=== PATIENT | male | born 1975 | race Caucasian/White ===

== ENCOUNTER 2018-05-14 13:48 | Inpatient (IN) | payer OTHER ==
[2018-05-14] VITALS (238 sets, daily range): BP systolic 107; BP diastolic 71; PULSE 86; TEMP 98; O2SAT 63–100
[~2018-05-14] VITALS: Ht 182.9 cm; Wt 97.2 kg
[~2018-05-14 13:48] MED LIST: ALBUTEROL0.83 MG/ML IH; NEXIUM 40MG40 MG PO; VENTOLIN0.09 MG IH
[2018-05-14] MEDS ORDERED: ALBUTEROL1.25 MG/3 IH (14:16)
[2018-05-14 14:23] LABS: HEMATOCRIT 42.2 % (42.0-52.0); HEMOGLOBIN 14.8 g/dl (13.5-18.0); MEAN CELL VOLUME 90 fl (80.0-100.0); MEAN CORPUSCULAR HEMOGLOBIN 31 pg (27.0-31.0); MEAN CORPUSCULAR HGB CONC 35 g/dl (33.0-37.0); MEAN PLATELET VOLUME 10.2 fl (7.4-10.4); PLATELET COUNT 205 K/mm3 (130-400); RED BLOOD COUNT 4.71 M/mm3 (4.20-5.60); REDCELL DISTRIBUTION WIDTH-CV 12.9 % (11.5-14.5)
[2018-05-14 14:36] LABS: ALBUMIN 3.9 gm/dL (3.5-5.0); BILIRUBIN,TOTAL 0.8 mg/dL (0.0-1.0); CALCIUM 8.3 mg/dL (8.4-10.2); CREATININE, serum 2.61 mg/dL (0.66-1.25); POTASSIUM 3.2 mmol/L (3.4-5.0); TOTAL PROTEIN 7.4 gm/dL (6.4-8.2)
[2018-05-14 14:46] LABS: ERYTHROCYTE SEDIMENTATION RATE 7 mm/hr (0-15)
[2018-05-14 14:49] LABS: C-REACTIVE PROTEIN 21.2 mg/dL (0.0-0.9)
[2018-05-14 14:57] LABS: BAND 22 % (0-10); LYMPHOCYTE 1 % (20.0-51.0); METAMYELOCYTE 2 % (0-0); NEUTROPHILS 72 % (42.0-75.2); PLATELET ESTIMATE NORMAL (NORMAL)
[2018-05-14 17:00] LABS: COLLECTION METHOD CLEAN CATCH
[2018-05-14 17:13] LABS: GRANULAR CAST >12 /lpf; MUCOUS Present /lpf; PH 5 (5-8); URINE APPEARANCE Cloudy; URINE BACTERIA Rare /hpf; URINE BILIRUBIN Negative (NEGATIVE); URINE BLOOD 2+ (NEGATIVE); URINE COLOR Amber; URINE GLUCOSE Negative (NEGATIVE); URINE KETONE Negative (NEGATIVE); URINE LEUKOCYTE ESTERASE 3+ (NEGATIVE); URINE NITRATE Negative (NEGATIVE); URINE PROTEIN(semi-quant) 2+ (NEGATIVE); URINE UROBILINOGEN Negative (NEGATIVE)
[2018-05-14 18:28] LABS: CALCIUM 6.7 mg/dL (8.4-10.2); CREATININE, serum 2.25 mg/dL (0.66-1.25); POTASSIUM 3.3 mmol/L (3.4-5.0)
[2018-05-14 18:46] LABS: INR 1.2 (0.8-3.0); PROTHROMBIN TIME 13.7 SECONDS (9.7-12.8)
[2018-05-14 18:49] LABS: SALICYLATE < 1.0 mg/dL
[2018-05-14 18:59] LABS: TROPONIN-I 0.028 ng/mL (0.000-0.034)
[2018-05-14] MEDS ORDERED: 00186-0370-20 IH (20:04)
[2018-05-14] MEDS ORDERED: NEXIUM 20MG20 MG PO (20:04)
[2018-05-14 20:11] LABS: ARTERIAL BLD GAS O2 SATURATION 96.8 % (92-100); ARTERIAL BLD GAS TCO2 CT 15.4; ARTERIAL BLOOD GAS BASE EXCESS -8.5 (-2-2); ARTERIAL BLOOD GAS HCO3 14.6 meq/L (22-26); ARTERIAL BLOOD GAS PCO2 24.9 mmHg (35-45); ARTERIAL BLOOD GAS PO2 97.3 mmHg (80-100); ARTERIAL BLOOD GAS pH 7.39 (7.35-7.45)
[2018-05-14 23:50] LABS: CALCIUM 6.9 mg/dL (8.4-10.2); CREATININE, serum 1.96 mg/dL (0.66-1.25); POTASSIUM 3.3 mmol/L (3.4-5.0)
[2018-05-15] VITALS (1394 sets, daily range): BP systolic 92–132; BP diastolic 63–70; PULSE 88–122; TEMP 97.6–100.1; O2SAT 31–100
[2018-05-15 04:19] LABS: ARTERIAL BLD GAS O2 SATURATION 95.5 % (92-100); ARTERIAL BLD GAS TCO2 CT 17.2; ARTERIAL BLOOD GAS BASE EXCESS -5.5 (-2-2); ARTERIAL BLOOD GAS HCO3 16.5 meq/L (22-26); ARTERIAL BLOOD GAS PO2 73.4 mmHg (80-100); ARTERIAL BLOOD GAS pH 7.46 (7.35-7.45)
[2018-05-15 04:20] LABS: ARTERIAL BLOOD GAS PCO2 23.7 mmHg (35-45)
[2018-05-15 05:44] LABS: MEAN CELL VOLUME 92 fl (80.0-100.0); MEAN CORPUSCULAR HGB CONC 35 g/dl (33.0-37.0); MEAN PLATELET VOLUME 10.7 fl (7.4-10.4); PLATELET COUNT 180 K/mm3 (130-400); RED BLOOD COUNT 3.87 M/mm3 (4.20-5.60); REDCELL DISTRIBUTION WIDTH-CV 13.1 % (11.5-14.5)
[2018-05-15 05:45] LABS: INR 1.2 (0.8-3.0); PROTHROMBIN TIME 13.9 SECONDS (9.7-12.8)
[2018-05-15 05:49] LABS: HEMATOCRIT 35.4 % (42.0-52.0); HEMOGLOBIN 12.3 g/dl (13.5-18.0); MEAN CORPUSCULAR HEMOGLOBIN 32 pg (27.0-31.0)
[2018-05-15 05:56] LABS: ALBUMIN 2.8 gm/dL (3.5-5.0); BILIRUBIN,TOTAL 0.6 mg/dL (0.0-1.0); CREATININE, serum 1.63 mg/dL (0.66-1.25); POTASSIUM 3.2 mmol/L (3.4-5.0); TOTAL PROTEIN 5.7 gm/dL (6.4-8.2)
[2018-05-15 06:04] LABS: BAND 35 % (0-10); EOSINOPHIL 4 % (0-4); LYMPHOCYTE 1 % (20.0-51.0); NEUTROPHILS 58 % (42.0-75.2); PLATELET ESTIMATE NORMAL (NORMAL)
[2018-05-16] VITALS (1428 sets, daily range): BP systolic 106–139; BP diastolic 62–90; PULSE 100–116; TEMP 96.6–102.8; O2SAT 75–100
[2018-05-16 05:25] LABS: MEAN CELL VOLUME 92 fl (80.0-100.0); MEAN CORPUSCULAR HGB CONC 35 g/dl (33.0-37.0); MEAN PLATELET VOLUME 10.6 fl (7.4-10.4); PLATELET COUNT 158 K/mm3 (130-400); REDCELL DISTRIBUTION WIDTH-CV 13.3 % (11.5-14.5)
[2018-05-16 05:37] LABS: ALBUMIN 2.5 gm/dL (3.5-5.0); BILIRUBIN,TOTAL 0.7 mg/dL (0.0-1.0); CALCIUM 7.6 mg/dL (8.4-10.2); CREATININE, serum 1.02 mg/dL (0.66-1.25); MAGNESIUM 1.4 mg/dL (1.6-2.3); POTASSIUM 3.2 mmol/L (3.4-5.0); TOTAL PROTEIN 5.3 gm/dL (6.4-8.2)
[2018-05-16 05:46] LABS: HEMATOCRIT 29.5 % (42.0-52.0); HEMOGLOBIN 10.3 g/dl (13.5-18.0); MEAN CORPUSCULAR HEMOGLOBIN 32 pg (27.0-31.0)
[2018-05-16 05:54] LABS: INR 1.2 (0.8-3.0); PROTHROMBIN TIME 13.3 SECONDS (9.7-12.8)
[2018-05-16 06:17] LABS: BAND 35 % (0-10); EOSINOPHIL 1 % (0-4); LYMPHOCYTE 4 % (20.0-51.0); NEUTROPHILS 58 % (42.0-75.2)
[2018-05-16 06:18] LABS: PLATELET ESTIMATE NORMAL (NORMAL)
[2018-05-16 13:08] LABS: GLUCOSE,SYNOVIAL FLUID 124 mg/dL; SYNOVIAL FL. MONONUCLEAR 6.9 % (0-75); SYNOVIAL FLUID RBC 1000 /mm3 (0-0); SYNOVIAL FLUID WBC 21873 /mm3 (200-600); TOTAL PROTEIN,SYNOVIAL FLUID < 2.0 gm/dL
[2018-05-16 13:11] LABS: SYNOVIAL FLUID APPEARANCE CLOUDY; SYNOVIAL FLUID COLOR YELLOW
[2018-05-17] VITALS (1319 sets, daily range): BP systolic 108–133; BP diastolic 60–85; PULSE 90–101; TEMP 97.4–99.9; O2SAT 65–100
[2018-05-17 05:41] LABS: BASO # 0.1 (0.0-0.2); BASO % 0.5 % (0.0-2.0); EOS # 0.3 (0.0-0.7); EOS % 1.6 % (0-4.0); GRAN # 17.2 (1.4-6.5); HEMOGLOBIN 10.8 g/dl (13.5-18.0); LYMPH # 0.8 (1.2-3.4); LYMPH % 4.1 % (20.0-51.0); MEAN CELL VOLUME 90 fl (80.0-100.0); MEAN CORPUSCULAR HEMOGLOBIN 32 pg (27.0-31.0); MEAN CORPUSCULAR HGB CONC 36 g/dl (33.0-37.0); MONO % 5.3 % (1.7-9.3); PLATELET COUNT 175 K/mm3 (130-400); RED BLOOD COUNT 3.36 M/mm3 (4.20-5.60); REDCELL DISTRIBUTION WIDTH-CV 13.7 % (11.5-14.5)
[2018-05-17 05:44] LABS: PROTHROMBIN TIME 11.8 SECONDS (9.7-12.8)
[2018-05-17 05:45] LABS: HEMATOCRIT 30.3 % (42.0-52.0)
[2018-05-17 05:59] LABS: ALBUMIN 2.6 gm/dL (3.5-5.0); BILIRUBIN,TOTAL 1.1 mg/dL (0.0-1.0); CALCIUM 8.4 mg/dL (8.4-10.2); CREATININE, serum 0.82 mg/dL (0.66-1.25); POTASSIUM 3.6 mmol/L (3.4-5.0); TOTAL PROTEIN 5.7 gm/dL (6.4-8.2)
[2018-05-18] VITALS (715 sets, daily range): BP systolic 102–140; BP diastolic 71–94; PULSE 86–106; TEMP 97.8–98.7; O2SAT 53–100
[2018-05-19] VITALS (8 sets, daily range): BP systolic 124–149; BP diastolic 81–95; PULSE 75–110; TEMP 98.3–99.9
[2018-05-20 03:50] VITALS: BP 138/88; PULSE 90; TEMP 98.4
[2018-05-20 07:09] VITALS: BP 141/96; PULSE 76; TEMP 98.7
[2018-05-20 11:29] VITALS: BP 129/95; PULSE 88; TEMP 97.6
[2018-05-20 17:21] VITALS: BP 136/95; PULSE 93; TEMP 98.5
[2018-05-20 18:59] VITALS: BP 146/90; PULSE 92; TEMP 98.3
[2018-05-20 23:20] VITALS: BP 146/87; PULSE 89; TEMP 98.4
[2018-05-21 02:58] VITALS: BP 146/92; PULSE 95; TEMP 98.3
[2018-05-21 08:23] VITALS: BP 127/86; PULSE 84; TEMP 98.7
[2018-05-21 12:52] LABS: COLLECTION METHOD CLEAN CATCH
[2018-05-21 13:01] LABS: PH 5 (5-8); SQUAMOUS EPITHELIAL None Seen /hpf; URINE APPEARANCE Clear; URINE BACTERIA None Seen /hpf; URINE BILIRUBIN Negative (NEGATIVE); URINE BLOOD Negative (NEGATIVE); URINE COLOR Straw; URINE GLUCOSE Negative (NEGATIVE); URINE KETONE Negative (NEGATIVE); URINE LEUKOCYTE ESTERASE Negative (NEGATIVE); URINE NITRATE Negative (NEGATIVE); URINE PROTEIN(semi-quant) Negative (NEGATIVE); URINE RBC 0-2 /hpf; URINE UROBILINOGEN Negative (NEGATIVE); URINE WBC 0-2 /hpf
[2018-05-21 13:11] LABS: URINE PROTEIN:CREAT RATIO 0.87 (0.00-0.14)
[2018-05-21 13:36] LABS: CREATININE, serum 2.61 mg/dL (0.66-1.25); FRACTIONAL EXCRETION OF NA+ 4.9 %
[2018-05-21 13:37] VITALS: BP 136/95; PULSE 99; TEMP 98.4
[2018-05-21 17:33] VITALS: BP 136/92; PULSE 77; TEMP 98.4
[2018-05-21 20:14] VITALS: BP 133/87; PULSE 94; TEMP 99.3
[2018-05-21 23:56] VITALS: BP 143/95; PULSE 88; TEMP 99.4
[2018-05-22 03:49] VITALS: BP 137/88; PULSE 88; TEMP 98.4
[2018-05-22 08:00] VITALS: BP 134/93; PULSE 73; TEMP 97.7
[2018-05-22 11:53] VITALS: BP 134/88; PULSE 84; TEMP 98.2
[2018-05-22 16:47] VITALS: BP 137/91; PULSE 79; TEMP 98.3
[2018-05-22 19:13] VITALS: BP 140/86; PULSE 86; TEMP 97.9
[2018-05-22 23:02] VITALS: BP 141/92; PULSE 78; TEMP 99
[2018-05-23 03:59] VITALS: BP 132/83; PULSE 77; TEMP 98
[2018-05-23 07:34] VITALS: BP 137/88; PULSE 79; TEMP 98.8
[2018-05-23] MEDS ORDERED: CEPHALEXIN500 M1 PO (10:12)
[2018-05-23] MEDS ORDERED: MONODOX100 PO (10:12)
[2018-05-23] MEDS ORDERED: TYLENOL 325MG325 MG PO (10:13)
[2018-05-23] MEDS ORDERED: IMODIUM 2MG CAPS2 MG PO (10:13)
[2018-05-23] MEDS ORDERED: NORCO 325 MG-101 TAB PO (10:14)
[2018-05-23 11:01] VITALS: BP 139/74; PULSE 93; TEMP 97.8
[2018-05-23 17:13] LABS: CK total - for Isoenzymes 20 U/L (39 - 308)
== END 2018-05-23 13:00 | disposition home or self-care (01) | DRG 872 ==
LOC: COL.ER 13:48 → ICU 17:30 → MEDICAL 17:30
PROVIDERS: Emergency Medicine; Internal Medicine; Internal Medicine Nephrology; Nurse Practitioner; Physician Assistant
DX: A41.9 Sepsis, unspecified organism (principal); L03.116 Cellulitis of left lower limb; N17.9 Acute kidney failure, unspecified; R53.81 Other malaise; E87.6 Hypokalemia; E83.42 Hypomagnesemia; J45.909 Unspecified asthma, uncomplicated; K21.9 Gastro-esophageal reflux disease without esophagitis
CPT/HCPCS: 99223-AI; 99232-AI; 99233-AI; 99239; A9284; A9585; C1751; C1894; J0692; J1170; J1644; J2405; J2543; J2550; J3010; J3370; J3475; J3480; J7030; J7050

== ENCOUNTER → 2018-11-03 | Outpatient (CLI) | payer BC ==
[~2018-11-03] MED LIST changes: +00186-0370-20 IH; +ALBUTEROL1.25 MG/3 IH; +CEPHALEXIN500 M1 PO; +IMODIUM 2MG CAPS2 MG PO; +MONODOX100 PO; +NEXIUM 20MG20 MG PO; +NORCO 325 MG-101 TAB PO; +TYLENOL 325MG325 MG PO
== END ==
LOC: COL.LAB 11:15
DX: M79.661 Pain in right lower leg (principal)

== ENCOUNTER 2021-07-03 09:06 | Outpatient (CLI) | payer BC ==
[2021-07-03] VITALS (7 sets, daily range): BP systolic 114–128; BP diastolic 84–98; PULSE 81–92; TEMP 99.2
[~2021-07-03] VITALS: Ht 182.9 cm; Wt 88.6 kg
[2021-07-03] MEDS ORDERED: ZYRTEC 10MG10 MG PO (09:32)
[2021-07-03] MEDS ORDERED: NORVASC 5MG5 MG/TAB PO (09:32)
[2021-07-03] MEDS ORDERED: ONE-A-DAY ESSE1 EACH PO (09:33)
--- NOTE | 2021-07-03 11:15 | NUR ---
Pt tolerated infusion without issue. INT DC'd with catheter intact. Pt escorted out to ED entrance.
== END 2021-07-03 11:38 | disposition home or self-care (01) ==
LOC: EUO 09:06
DX: U07.1 COVID-19 (principal)
CPT/HCPCS: Q0244

== ENCOUNTER 2021-11-28 08:47 | Emergency (ER) | payer BC ==
[~2021-11-28] VITALS: Ht 182.9 cm; Wt 84.1 kg
[~2021-11-28 08:47] MED LIST changes: +NORVASC 5MG5 MG/TAB PO; +ONE-A-DAY ESSE1 EACH PO; +ZYRTEC 10MG10 MG PO
[2021-11-28 08:50] VITALS: TEMP 98.3
[2021-11-28 09:55] LABS: BASO # 0.1 K/mm3 (0.0-0.2); BASO % 0.6 % (0.0-2.0); EOS # 0.1 K/mm3 (0.0-0.7); EOS % 0.9 % (0.0-4.0); GRAN # 6.3 K/mm3 (1.4-6.5); GRAN % 66.4 % (42.2-75.2); HEMATOCRIT 47.5 % (42.0-52.0); HEMOGLOBIN 17.5 g/dl (13.5-18.0); LYMPH # 2.1 K/mm3 (1.2-3.4); LYMPH % 22.3 % (20.0-51.0); MEAN CELL VOLUME 82 fl (80.0-100.0); MEAN CORPUSCULAR HEMOGLOBIN 30 pg (27-31); MEAN CORPUSCULAR HGB CONC 37 g/dl (33.0-37.0); MEAN PLATELET VOLUME 9.4 fl (7.4-10.4); MONO # 0.9 K/mm3 (0.1-0.6); MONO % 9.4 % (1.7-9.3); PLATELET COUNT 331 K/mm3 (130-400); REDCELL DISTRIBUTION WIDTH-CV 12.2 % (11.5-14.5)
[2021-11-28 10:13] LABS: ALBUMIN 4.1 gm/dL (3.5-5.0); BILIRUBIN,TOTAL 2.4 mg/dL (0.2-1.2); C-REACTIVE PROTEIN 0.05 mg/dL (0.00-0.50); CALCIUM 8.7 mg/dL (8.4-10.2); CREATININE, serum 1.17 mg/dL (0.72-1.25); POTASSIUM 3.9 mmol/L (3.5-4.5); TOTAL PROTEIN 7.2 gm/dL (6.2-8.1)
[2021-11-28] MEDS ORDERED: PROTONIX 40MG T40 MG PO (11:35)
[2021-11-28] MEDS ORDERED: ZOFRAN ODT4 MG PO (11:35)
[2021-11-28] MEDS ORDERED: CARAFATE 1GM1 G PO (11:35)
[2021-11-28 12:42] VITALS: BP 132/71; PULSE 73
== END 2021-11-28 12:52 | disposition home or self-care (01) ==
LOC: COL.ER 08:47
PROVIDERS: Emergency Medicine
DX: R42 Dizziness and giddiness (principal); J40 Bronchitis, not specified as acute or chronic; K29.70 Gastritis, unspecified, without bleeding; J45.909 Unspecified asthma, uncomplicated; I10 Essential (primary) hypertension; Z79.899 Other long term (current) drug therapy; Z79.51 Long term (current) use of inhaled steroids; Z20.822 Contact with and (suspected) exposure to COVID-19
CPT/HCPCS: J2405; J7030; Q9967

== ENCOUNTER 2022-02-04 18:57 | Emergency (ER) | payer BC ==
[~2022-02-04] VITALS: Ht 182.9 cm; Wt 90.9 kg
[~2022-02-04 18:57] MED LIST changes: +CARAFATE 1GM1 G PO; +PROTONIX 40MG T40 MG PO; +ZOFRAN ODT4 MG PO
[2022-02-04 19:01] VITALS: TEMP 97.6
[2022-02-04 19:44] LABS: BASO # 0.1 K/mm3 (0.0-0.2); BASO % 1.1 % (0.0-2.0); BILIRUBIN,TOTAL 1.3 mg/dL (0.2-1.2); C-REACTIVE PROTEIN 0.05 mg/dL (0.00-0.50); CALCIUM 8.5 mg/dL (8.4-10.2); CREATININE, serum 1.11 mg/dL (0.72-1.25); EOS # 0.2 K/mm3 (0.0-0.7); GRAN # 4.5 K/mm3 (1.4-6.5); GRAN % 59.5 % (42.2-75.2); HEMATOCRIT 44.1 % (42.0-52.0); HEMOGLOBIN 15.6 g/dl (13.5-18.0); LYMPH % 27.2 % (20.0-51.0); MEAN CELL VOLUME 88 fl (80.0-100.0); MEAN CORPUSCULAR HEMOGLOBIN 31 pg (27-31); MEAN CORPUSCULAR HGB CONC 35 g/dl (33.0-37.0); MEAN PLATELET VOLUME 9.8 fl (7.4-10.4); MONO # 0.7 K/mm3 (0.1-0.6); MONO % 9.9 % (1.7-9.3); PLATELET COUNT 292 K/mm3 (130-400); POTASSIUM 3.6 mmol/L (3.5-4.5); RED BLOOD COUNT 5.03 M/mm3 (4.20-5.60); TOTAL PROTEIN 6.9 gm/dL (6.2-8.1)
[2022-02-04 21:39] VITALS: BP 134/86; PULSE 87
[2022-02-05] MEDS ORDERED: ZOFRAN ODT4 MG PO (09:59)
[2022-02-05] MEDS ORDERED: PEPCID 20MG TAB20 MG PO (09:59)
== END 2022-02-04 21:40 | disposition home or self-care (01) ==
LOC: COL.ER 18:57
PROVIDERS: Family Medicine
DX: E86.0 Dehydration (principal); R11.2 Nausea with vomiting, unspecified; Z20.822 Contact with and (suspected) exposure to COVID-19
CPT/HCPCS: J2405; J7120

== ENCOUNTER 2022-02-05 07:31 | Emergency (ER) | payer BC ==
[~2022-02-05] VITALS: Ht 182.9 cm; Wt 86.4 kg
[2022-02-05 07:38] VITALS: TEMP 98.3
[2022-02-05 08:38] LABS: ALBUMIN 3.9 gm/dL (3.5-5.0); CALCIUM 8.5 mg/dL (8.4-10.2); CREATININE, serum 1.34 mg/dL (0.72-1.25); MAGNESIUM 2.1 mg/dL (1.6-2.6); POTASSIUM 3.6 mmol/L (3.5-4.5)
[2022-02-05 08:42] LABS: BASO # 0.1 K/mm3 (0.0-0.2); BASO % 0.9 % (0.0-2.0); EOS # 0.1 K/mm3 (0.0-0.7); EOS % 1.8 % (0.0-4.0); GRAN # 4.3 K/mm3 (1.4-6.5); GRAN % 63.6 % (42.2-75.2); HEMATOCRIT 44.5 % (42.0-52.0); HEMOGLOBIN 15.6 g/dl (13.5-18.0); LYMPH # 1.6 K/mm3 (1.2-3.4); LYMPH % 23.2 % (20.0-51.0); MEAN CELL VOLUME 89 fl (80.0-100.0); MEAN CORPUSCULAR HEMOGLOBIN 31 pg (27-31); MEAN CORPUSCULAR HGB CONC 35 g/dl (33.0-37.0); MEAN PLATELET VOLUME 9.7 fl (7.4-10.4); MONO # 0.7 K/mm3 (0.1-0.6); MONO % 10.2 % (1.7-9.3); PLATELET COUNT 293 K/mm3 (130-400); REDCELL DISTRIBUTION WIDTH-CV 13.1 % (11.5-14.5)
[2022-02-05] MEDS ORDERED: ZOFRAN ODT4 MG PO (09:59)
[2022-02-05] MEDS ORDERED: PEPCID 20MG TAB20 MG PO (09:59)
[2022-02-05 10:48] VITALS: BP 154/100; PULSE 97
== END 2022-02-05 10:48 | disposition home or self-care (01) ==
LOC: COL.ER 07:31
PROVIDERS: Emergency Medicine
DX: R10.13 Epigastric pain (principal); R11.2 Nausea with vomiting, unspecified; R94.4 Abnormal results of kidney function studies
CPT/HCPCS: J2405; J7120

== ENCOUNTER 2022-04-08 17:10 | Emergency (ER) | payer BC ==
[~2022-04-08] VITALS: Ht 182.9 cm; Wt 90.9 kg
[~2022-04-08 17:10] MED LIST changes: +PEPCID 20MG TAB20 MG PO
[2022-04-08 17:18] VITALS: TEMP 97.9
[2022-04-08 17:46] LABS: BASO # 0.1 K/mm3 (0.0-0.2); EOS # 0.2 K/mm3 (0.0-0.7); EOS % 2.4 % (0.0-4.0); GRAN # 3.5 K/mm3 (1.4-6.5); GRAN % 56.3 % (42.2-75.2); HEMATOCRIT 44.5 % (42.0-52.0); HEMOGLOBIN 16.1 g/dl (13.5-18.0); LYMPH % 31.8 % (20.0-51.0); MEAN CELL VOLUME 87 fl (80.0-100.0); MEAN CORPUSCULAR HEMOGLOBIN 31 pg (27-31); MEAN CORPUSCULAR HGB CONC 36 g/dl (33.0-37.0); MEAN PLATELET VOLUME 9.4 fl (7.4-10.4); MONO # 0.5 K/mm3 (0.1-0.6); MONO % 8.3 % (1.7-9.3); PLATELET COUNT 289 K/mm3 (130-400); RED BLOOD COUNT 5.12 M/mm3 (4.20-5.60); REDCELL DISTRIBUTION WIDTH-CV 12.7 % (11.5-14.5)
[2022-04-08 18:10] LABS: ALBUMIN 3.9 gm/dL (3.5-5.0); BILIRUBIN,TOTAL 0.7 mg/dL (0.2-1.2); C-REACTIVE PROTEIN 0.05 mg/dL (0.00-0.50); CALCIUM 8.4 mg/dL (8.4-10.2); CREATININE, serum 1.1 mg/dL (0.72-1.25); POTASSIUM 3.9 mmol/L (3.5-4.5)
[2022-04-08 19:11] LABS: COLLECTION METHOD CLEAN CATCH
[2022-04-08 19:16] LABS: PH 8 (5-8); SQUAMOUS EPITHELIAL None Seen /hpf (0-10); URINE APPEARANCE Clear (CLEAR/HAZY); URINE BACTERIA None Seen /hpf (NONE SEEN); URINE BILIRUBIN Negative (NEGATIVE); URINE BLOOD Negative (NEGATIVE); URINE COLOR Straw (YELLOW); URINE GLUCOSE Negative (NEGATIVE); URINE KETONE Negative (NEGATIVE); URINE LEUKOCYTE ESTERASE Negative (NEGATIVE); URINE NITRATE Negative (NEGATIVE); URINE PROTEIN(semi-quant) Negative (NEGATIVE); URINE RBC None Seen /hpf (0-2); URINE UROBILINOGEN Negative (NEGATIVE)
[2022-04-08 20:00] VITALS: BP 130/80; PULSE 85
== END 2022-04-08 20:14 | disposition home or self-care (01) ==
LOC: COL.ER 17:10
PROVIDERS: Nurse Practitioner
DX: F10.129 Alcohol abuse with intoxication, unspecified (principal); R53.83 Other fatigue; Y90.7 Blood alcohol level of 200-239 mg/100 ml
CPT/HCPCS: J7030

== ENCOUNTER 2022-05-14 16:18 | Emergency (ER) | payer BC ==
[~2022-05-14] VITALS: Ht 182.9 cm; Wt 88.6 kg
[2022-05-14 17:04] VITALS: TEMP 97.9
[2022-05-14 17:58] LABS: BASO # 0.1 K/mm3 (0.0-0.2); BASO % 1.1 % (0.0-2.0); EOS # 0.1 K/mm3 (0.0-0.7); EOS % 0.9 % (0.0-4.0); GRAN # 4.1 K/mm3 (1.4-6.5); GRAN % 63.7 % (42.2-75.2); HEMATOCRIT 46.2 % (42.0-52.0); HEMOGLOBIN 16.4 g/dl (13.5-18.0); LYMPH # 1.6 K/mm3 (1.2-3.4); LYMPH % 25.1 % (20.0-51.0); MEAN CELL VOLUME 89 fl (80.0-100.0); MEAN CORPUSCULAR HEMOGLOBIN 32 pg (27-31); MEAN CORPUSCULAR HGB CONC 36 g/dl (33.0-37.0); MEAN PLATELET VOLUME 9.4 fl (7.4-10.4); MONO # 0.6 K/mm3 (0.1-0.6); MONO % 8.9 % (1.7-9.3); PLATELET COUNT 278 K/mm3 (130-400); REDCELL DISTRIBUTION WIDTH-CV 12.7 % (11.5-14.5)
[2022-05-14 18:15] LABS: BILIRUBIN,TOTAL 1.9 mg/dL (0.2-1.2); C-REACTIVE PROTEIN 0.03 mg/dL (0.00-0.50); CALCIUM 8.8 mg/dL (8.4-10.2); CREATININE, serum 1.24 mg/dL (0.72-1.25); POTASSIUM 4.1 mmol/L (3.5-4.5); TOTAL PROTEIN 7.1 gm/dL (6.2-8.1)
[2022-05-14 19:20] LABS: COLLECTION METHOD CLEAN CATCH
[2022-05-14 19:30] LABS: PH 5 (5-8); SQUAMOUS EPITHELIAL None Seen /hpf (0-10); URINE APPEARANCE Clear (CLEAR/HAZY); URINE BACTERIA None Seen /hpf (NONE SEEN); URINE BILIRUBIN Negative (NEGATIVE); URINE BLOOD Negative (NEGATIVE); URINE COLOR Yellow (YELLOW); URINE GLUCOSE Negative (NEGATIVE); URINE KETONE Negative (NEGATIVE); URINE LEUKOCYTE ESTERASE Negative (NEGATIVE); URINE NITRATE Negative (NEGATIVE); URINE PROTEIN(semi-quant) Negative (NEGATIVE); URINE RBC None Seen /hpf (0-2); URINE UROBILINOGEN Negative (NEGATIVE)
[2022-05-14 20:00] VITALS: BP 157/100; PULSE 79
[2022-05-15] MEDS ORDERED: 00186-0370-20 IH (19:46)
== END 2022-05-14 20:00 | disposition home or self-care (01) ==
LOC: COL.ER 16:18
PROVIDERS: Nurse Practitioner
DX: R10.10 Upper abdominal pain, unspecified (principal); R11.2 Nausea with vomiting, unspecified; F10.129 Alcohol abuse with intoxication, unspecified; I10 Essential (primary) hypertension; Z87.891 Personal history of nicotine dependence; Z28.310 Unvaccinated for COVID-19
CPT/HCPCS: J2405; J7030

== ENCOUNTER 2023-11-29 12:53 | Emergency (ER) | payer BC ==
[~2023-11-29] VITALS: Ht 182.9 cm; Wt 81.8 kg
[2023-11-29] MEDS ORDERED: LR 1,000 ML IV ONE (13:15)
[2023-11-29] MEDS ORDERED: Ondansetron 4 MG/2 ML VIAL IV ONE (13:15)
[2023-11-29 13:46] LABS: ALBUMIN 4.3 gm/dL (3.5-5.0); BILIRUBIN,TOTAL 3.3 mg/dL (0.2-1.2); CALCIUM 9.5 mg/dL (8.4-10.2); CREATININE, serum 1.01 mg/dL (0.72-1.25); MAGNESIUM 1.7 mg/dL (1.6-2.6); POTASSIUM 3.9 mmol/L (3.5-4.5); TOTAL PROTEIN 7.3 gm/dL (6.2-8.1)
[2023-11-29 13:49] LABS: BASO # 0.1 K/mm3 (0.0-0.2); BASO % 1.2 % (0.0-2.0); EOS % 0.5 % (0.0-4.0); GRAN # 4.7 K/mm3 (1.4-6.5); GRAN % 65.1 % (42.2-75.2); LYMPH # 1.8 K/mm3 (1.2-3.4); LYMPH % 24.5 % (20.0-51.0); MEAN CELL VOLUME 83 fl (80.0-100.0); MEAN CORPUSCULAR HEMOGLOBIN 30 pg (27-31); MEAN CORPUSCULAR HGB CONC 37 g/dl (33.0-37.0); MEAN PLATELET VOLUME 9.8 fl (7.4-10.4); MONO # 0.6 K/mm3 (0.1-0.6); MONO % 8.6 % (1.7-9.3); PLATELET COUNT 288 K/mm3 (130-400); RED BLOOD COUNT 5.78 M/mm3 (4.20-5.60); REDCELL DISTRIBUTION WIDTH-CV 12.4 % (11.5-14.5)
[2023-11-29 13:50] LABS: HEMOGLOBIN 17.5 g/dl (13.5-18.0)
[2023-11-29] MEDS ORDERED: LORazepam 2 MG/ML 1 ML VIAL IV SCH (14:36)
[2023-11-29 16:34] VITALS: BP 149/96; PULSE 114; TEMP 97.9
[2023-11-30] MEDS ORDERED: PRIL40 PO (13:53)
== END 2023-11-29 16:50 | disposition home or self-care (01) ==
LOC: COL.ER 12:53
PROVIDERS: Physician Assistant
DX: F10.129 Alcohol abuse with intoxication, unspecified (principal); R74.01 Elevation of levels of liver transaminase levels; Y90.7 Blood alcohol level of 200-239 mg/100 ml
CPT/HCPCS: J2060; J2405; J7120

== ENCOUNTER 2023-11-30 10:14 | Emergency (ER) | payer BC ==
[~2023-11-30] VITALS: Ht 182.9 cm; Wt 81.8 kg
[2023-11-30 10:34] LABS: BASO # 0.1 K/mm3 (0.0-0.2); BASO % 1.8 % (0.0-2.0); EOS # 0.1 K/mm3 (0.0-0.7); EOS % 1.1 % (0.0-4.0); GRAN # 3.8 K/mm3 (1.4-6.5); GRAN % 60.4 % (42.2-75.2); HEMATOCRIT 45.4 % (42.0-52.0); HEMOGLOBIN 16.8 g/dl (13.5-18.0); LYMPH # 1.7 K/mm3 (1.2-3.4); LYMPH % 27.4 % (20.0-51.0); MEAN CELL VOLUME 83 fl (80.0-100.0); MEAN CORPUSCULAR HEMOGLOBIN 31 pg (27-31); MEAN CORPUSCULAR HGB CONC 37 g/dl (33.0-37.0); MEAN PLATELET VOLUME 9.7 fl (7.4-10.4); MONO # 0.6 K/mm3 (0.1-0.6); MONO % 9.1 % (1.7-9.3); PLATELET COUNT 249 K/mm3 (130-400); RED BLOOD COUNT 5.47 M/mm3 (4.20-5.60); REDCELL DISTRIBUTION WIDTH-CV 12.2 % (11.5-14.5)
[2023-11-30 10:57] LABS: ALBUMIN 4.3 gm/dL (3.5-5.0); BILIRUBIN,TOTAL 5.1 mg/dL (0.2-1.2); CALCIUM 9.4 mg/dL (8.4-10.2); CREATININE, serum 0.95 mg/dL (0.72-1.25); POTASSIUM 3.9 mmol/L (3.5-4.5)
[2023-11-30] MEDS ORDERED: PRIL40 PO (13:53)
[2023-11-30 14:10] VITALS: BP 154/91; PULSE 110; TEMP 98.1
[2023-12-01] MEDS ORDERED: NEXIUM 20MG20 MG PO (23:34)
[2023-12-01] MEDS ORDERED: MULTIVITAMIN200 MCG PO (23:38)
== END 2023-11-30 14:10 | disposition home or self-care (01) ==
LOC: COL.ER 10:14
PROVIDERS: Physician Assistant
DX: F10.129 Alcohol abuse with intoxication, unspecified (principal); E80.7 Disorder of bilirubin metabolism, unspecified; K82.8 Other specified diseases of gallbladder; Y90.7 Blood alcohol level of 200-239 mg/100 ml
CPT/HCPCS: C9113; J1790; J2405; J7030; Q9967

== ENCOUNTER 2023-12-01 20:42 | Inpatient (IN) | payer BC ==
[~2023-12-01] VITALS: Ht 182.9 cm; Wt 84.1 kg
[~2023-12-01 20:42] MED LIST changes: +PRIL40 PO
[2023-12-01] MEDS ORDERED: NS 1,000 ML IV ONE ×2 (21:00)
[2023-12-01 21:13] LABS: BASO # 0.1 K/mm3 (0.0-0.2); BASO % 1.4 % (0.0-2.0); EOS % 0.5 % (0.0-4.0); GRAN # 5.1 K/mm3 (1.4-6.5); HEMATOCRIT 44.6 % (42.0-52.0); LYMPH # 1.8 K/mm3 (1.2-3.4); LYMPH % 23.9 % (20.0-51.0); MEAN CELL VOLUME 86 fl (80.0-100.0); MEAN CORPUSCULAR HEMOGLOBIN 31 pg (27-31); MEAN CORPUSCULAR HGB CONC 36 g/dl (33.0-37.0); MEAN PLATELET VOLUME 9.9 fl (7.4-10.4); MONO # 0.5 K/mm3 (0.1-0.6); MONO % 6.8 % (1.7-9.3); PLATELET COUNT 253 K/mm3 (130-400); RED BLOOD COUNT 5.18 M/mm3 (4.20-5.60); REDCELL DISTRIBUTION WIDTH-CV 12.4 % (11.5-14.5)
[2023-12-01 21:32] LABS: ALBUMIN 4.1 gm/dL (3.5-5.0); BILIRUBIN,TOTAL 1.5 mg/dL (0.2-1.2); CALCIUM 8.8 mg/dL (8.4-10.2); CREATININE, serum 1.09 mg/dL (0.72-1.25); POTASSIUM 3.4 mmol/L (3.5-4.5); TOTAL PROTEIN 7.2 gm/dL (6.2-8.1)
[2023-12-01] MEDS ORDERED: Dextrose 50% Water 25 GM/50 ML SYRINGE IV ONE (22:00)
[2023-12-01] MEDS ORDERED: Ondansetron 4 MG/2 ML VIAL IV PRN (22:15)
[2023-12-01] MEDS ORDERED: Acetaminophen 325 MG TAB PO PRN (22:15)
[2023-12-01] MEDS ORDERED: Albuterol/Ipratropium 3 MG-0.5 MG/3 ML Neb Soln IH PRN (22:15)
[2023-12-01] MEDS ORDERED: Magnesium Sulfate 4% 50 ML IV ONE (22:15)
[2023-12-01] MEDS ORDERED: Mag/Al Hydrox/Simeth Susp 30 ML CUP PO PRN (22:15)
[2023-12-01] MEDS ORDERED: LORazepam 2 MG/ML 1 ML VIAL IV PRN (22:30)
[2023-12-01] MEDS ORDERED: LORazepam 2 MG/ML 1 ML VIAL IV ONE (22:30)
[2023-12-01] MEDS ORDERED: traZODone 100 MG TAB PO SCH (22:38)
[2023-12-01] MEDS ORDERED: hydrALAZINE 20 MG/ML 1 ML VIAL IV PRN (22:45)
[2023-12-01] MEDS ORDERED: D5 1/2 NS & 20 mEq KCl 1,000 ML IV SCH (22:45)
[2023-12-01] MEDS ORDERED: Folic Acid 1 MG,Thiamine 200 MG in NS 1,000 ML IV ONE (22:45)
--- NOTE | 2023-12-01 23:10 | NUR ---
Patient arrived to the unit at this time with personal belonging including clothes, phone, phone technical services manager, and one home med. Med taken and put in patients bin with label to administer. Assessment and med rec complete. IV in right AC flushes easily with no complications. Oriented patinet to room, bed, call light, and phone. Denies any pain or needs at this time. Call light and personal items in reach. Bed in low position and bed alarm on.
[2023-12-01 23:24] VITALS: BP 152/86; PULSE 86; TEMP 98.1
[2023-12-01] MEDS ORDERED: NEXIUM 20MG20 MG PO (23:34)
[2023-12-01] MEDS ORDERED: MULTIVITAMIN200 MCG PO (23:38)
[2023-12-02] VITALS (17 sets, daily range): BP systolic 103–169; BP diastolic 38–104; PULSE 68–104; TEMP 97.7–98.3
--- NOTE | 2023-12-02 06:00 | NUR ---
Patient resting in bed. Denies any pain or needs at this time. Patient has been scoring low on CIWA. Call light and personal items in reach. Bed in low position and bed alarm on.
[2023-12-02 06:57] LABS: MEAN CELL VOLUME 84 fl (80.0-100.0); MEAN CORPUSCULAR HGB CONC 36 g/dl (33.0-37.0); MEAN PLATELET VOLUME 9.9 fl (7.4-10.4); PLATELET COUNT 189 K/mm3 (130-400); RED BLOOD COUNT 4.37 M/mm3 (4.20-5.60); REDCELL DISTRIBUTION WIDTH-CV 12.6 % (11.5-14.5)
[2023-12-02] MEDS ORDERED: Patient's Own Medication Item PO SCH (07:00)
[2023-12-02 07:01] LABS: HEMATOCRIT 36.8 % (42.0-52.0); HEMOGLOBIN 13.3 g/dl (13.5-18.0); MEAN CORPUSCULAR HEMOGLOBIN 30 pg (27-31)
[2023-12-02 07:21] LABS: ALBUMIN 3.4 gm/dL (3.5-5.0); BILIRUBIN,TOTAL 2.5 mg/dL (0.2-1.2); CALCIUM 8.2 mg/dL (8.4-10.2); CREATININE, serum 0.89 mg/dL (0.72-1.25); MAGNESIUM 1.9 mg/dL (1.6-2.6); POTASSIUM 4.5 mmol/L (3.5-4.5); TOTAL PROTEIN 5.6 gm/dL (6.2-8.1)
[2023-12-02] MEDS ORDERED: Multivitamin TAB PO SCH (08:00)
--- NOTE | 2023-12-02 08:25 | NUR ---
pt a&ox3 resting in bed finishing up breakfast. vss and tele in place. pt scoring 3 on CIWA. pt complains of a headache rating a 4/10 but denies tylenol. seizure precautions in place. INT to right ac w fluids and banana bag infusing. pt denies needs at this time. call light in reach.
[2023-12-02] MEDS ORDERED: Folic Acid 1 MG TAB PO SCH (09:00)
[2023-12-02] MEDS ORDERED: Losartan 25 MG TAB PO SCH (09:00)
[2023-12-02] MEDS ORDERED: Sennosides/Docusate 8.6-50 MG TAB PO SCH (09:00)
[2023-12-02] MEDS ORDERED: amLODIPine 5 MG TAB PO SCH (11:27)
[2023-12-02] MEDS ORDERED: LR 1,000 ML IV SCH (11:30)
[2023-12-02] MEDS ORDERED: SYSTANE NIGHTT3.5 GM OP (15:04)
--- NOTE | 2023-12-02 15:26 | NUR ---
home health care social worker and Student Keara met with pt to complete discharge planning. Pt lives alone in [place]. He sees Dr. Wilkes for PCP needs and obtains medications from [facility] with no difficulties. He has a contact, [facility] [phone] listed. He is independent with ADLS and uses no DME. He does not have a DPOA-HC, SW explained this and provided a copy for review. Pt has his father as NOK and was informed that he is legal NOK. Pt intends to return home at discharge. Pt reports he would like a work note and to maintain privacy if his co-workers visit because he did not give the true reason as to why he is admitted. SW informed him that he should speak with the Nurse at discharge for a 's note. ZHEN asked if he would be agreeable to inpatient susbstance use resources or outpatient. Pt does not want inpatient resources, but is agreeable to outpatient or virtual resources. SW provided resources for substance use treatment. Pt reports the reason he drinks so heavily is that he gets "...bored and depressed. I am going to dump out my alcohol when I get home." SW encouraged him to seek help and treatment from the listed resources. Discharge Plan: Home with outpatient resources
[2023-12-02] MEDS ORDERED: Formoterol Neb Soln 20 MCG/2 ML UD IH SCH (19:00)
[2023-12-02] MEDS ORDERED: Budesonide Neb Susp 0.5 MG/2 ML AMP IH SCH (19:00)
--- NOTE | 2023-12-02 23:52 | NUR ---
patient lying in bed alert and oriented x4. pt denies chest pain and shortness of breath. reports aching in back and lower abd from frquent loose stool, per pt request senokot not given. IV in RAC is patent, site with fluid drainage, dressing changed and IV tightened at this time. no remarkable skin abnormalities noted. pt has no further needs, questions or concerns. fall precautions in place, pt educated on using call light when getting up to use bathroom, pt verbally understood fall risk and calllight use. call light within reach. will continue to monitor.
[2023-12-03] VITALS (8 sets, daily range): BP systolic 123–155; BP diastolic 76–101; PULSE 60–82; TEMP 97.5–98.4
[2023-12-03 07:32] LABS: CALCIUM 9.2 mg/dL (8.4-10.2); CREATININE, serum 0.88 mg/dL (0.72-1.25); POTASSIUM 3.7 mmol/L (3.5-4.5)
[2023-12-03 07:41] LABS: MAGNESIUM 1.7 mg/dL (1.6-2.6)
--- NOTE | 2023-12-03 08:00 | NUR ---
Patient standing at the doorway, A&Ox4 wanting to walk in the hallway. VSS. IV CDI, fluids infusing. Denies pain and discomfort. Detox protocol in place. Call light within reach
[2023-12-03] MEDS ORDERED: Thiamine 100 MG TAB PO SCH (09:00)
[2023-12-03] MEDS ORDERED: THIAMINE 1100 MG/TAB PO (10:02)
[2023-12-03] MEDS ORDERED: FOLIC ACID 11 MG/TA1 PO (10:02)
[2023-12-03] MEDS ORDERED: COZAAR 25MG25 MG/TAB PO (10:03)
[2023-12-03] MEDS ORDERED: DESYREL 50MG50 MG PO (10:10)
--- NOTE | 2023-12-03 10:11 | NUR ---
Initial visit; Patient thanked Iron Guardrail Installer for looking in on him and visiting. He and [employer] Guardrail Installer talked at length about churches, Pastors and "today's world." Patient feels that the world is out of control and hopes change is on the way. Patient thanked Iron Guardrail Installer for listening and offering God's blessings.
--- NOTE | 2023-12-03 11:45 | NUR ---
Discharge paperwork reviewed with the patient. Patient verbalized an understanding to follow doctors orders. IV removed, tip intact. Gauze and coban applied. Patient ambulated independently to awaiting cab. No further needs expressed.
== END 2023-12-03 11:45 | disposition home or self-care (01) | DRG 897 ==
LOC: COL.ER 20:42 → MEDICAL 22:08
PROVIDERS: Personal Emergency Response Attendant; Physician Assistant; ADMIT Internal Medicine
DX: F10.239 Alcohol dependence with withdrawal, unspecified (principal); E87.29 Other acidosis; E87.6 Hypokalemia; I10 Essential (primary) hypertension; K29.20 Alcoholic gastritis without bleeding; Y90.8 Blood alcohol level of 240 mg/100 ml or more; K21.9 Gastro-esophageal reflux disease without esophagitis; J45.909 Unspecified asthma, uncomplicated; R53.81 Other malaise; G47.00 Insomnia, unspecified; Z91.010 Allergy to peanuts; Z88.2 Allergy status to sulfonamides; Z91.018 Allergy to other foods; Z79.899 Other long term (current) drug therapy
CPT/HCPCS: C9113; J1650; J1790; J2060; J2405; J3411; J3475; J3480; J7030; J7120; Q9967

== ENCOUNTER 2024-01-19 16:37 | Emergency (ER) | payer BC ==
[~2024-01-19] VITALS: Ht 182.9 cm; Wt 86.4 kg
[~2024-01-19 16:37] MED LIST changes: +COZAAR 25MG25 MG/TAB PO; +DESYREL 50MG50 MG PO; +FOLIC ACID 11 MG/TA1 PO; +LIBRIUM 25M25 MG/CAP PO; +MULTIVITAMIN200 MCG PO; +PRILOSEC 20MG20 MG PO; +PROTONIX20 MG PO; +SYSTANE NIGHTT3.5 GM OP; +THIAMINE 1100 MG/TAB PO
[2024-01-19 16:45] VITALS: TEMP 97.8
[2024-01-19] MEDS ORDERED: NS 1,000 ML IV ONE (17:00)
[2024-01-19] MEDS ORDERED: Mag/Al Hydrox/Simeth Susp 30 ML CUP PO ONE (17:00)
[2024-01-19 17:15] VITALS: BP 134/107; PULSE 105
[2024-01-19 18:02] LABS: BASO # 0.1 K/mm3 (0.0-0.2); BASO % 1.1 % (0.0-2.0); EOS # 0.1 K/mm3 (0.0-0.7); GRAN # 3.8 K/mm3 (1.4-6.5); GRAN % 53.4 % (42.2-75.2); HEMOGLOBIN 16.8 g/dl (13.5-18.0); LYMPH # 2.5 K/mm3 (1.2-3.4); LYMPH % 34.9 % (20.0-51.0); MEAN CELL VOLUME 86 fl (80.0-100.0); MEAN CORPUSCULAR HEMOGLOBIN 31 pg (27-31); MEAN CORPUSCULAR HGB CONC 36 g/dl (33.0-37.0); MEAN PLATELET VOLUME 10.4 fl (7.4-10.4); MONO # 0.6 K/mm3 (0.1-0.6); MONO % 8.5 % (1.7-9.3); PLATELET COUNT 290 K/mm3 (130-400); RED BLOOD COUNT 5.44 M/mm3 (4.20-5.60); REDCELL DISTRIBUTION WIDTH-CV 12.6 % (11.5-14.5)
[2024-01-19 18:15] LABS: ALBUMIN 4.2 gm/dL (3.5-5.0); BILIRUBIN,TOTAL 3.3 mg/dL (0.2-1.2); CALCIUM 9.5 mg/dL (8.4-10.2); CREATININE, serum 1.13 mg/dL (0.72-1.25); MAGNESIUM 1.9 mg/dL (1.6-2.6); POTASSIUM 3.8 mmol/L (3.5-4.5); TOTAL PROTEIN 7.1 gm/dL (6.2-8.1)
== END 2024-01-19 18:47 | disposition left against medical advice (07) ==
LOC: COL.ER 16:37
PROVIDERS: Internal Medicine
DX: F10.129 Alcohol abuse with intoxication, unspecified (principal); Y90.7 Blood alcohol level of 200-239 mg/100 ml

== ENCOUNTER 2024-01-19 19:37 | Emergency (ER) | payer BC ==
[~2024-01-19] VITALS: Ht 182.9 cm; Wt 86.4 kg
[2024-01-19 20:59] LABS: TRICYCLIC ANTIDEPRESS URINE NEGATIVE (NEGATIVE)
[2024-01-19 22:15] VITALS: BP 136/99; PULSE 101; TEMP 98.2
== END 2024-01-19 22:15 | disposition home or self-care (01) ==
LOC: COL.ER 19:37
PROVIDERS: Internal Medicine
DX: F10.129 Alcohol abuse with intoxication, unspecified (principal); F17.200 Nicotine dependence, unspecified, uncomplicated; Y90.8 Blood alcohol level of 240 mg/100 ml or more

== ENCOUNTER 2024-03-25 09:51 | Inpatient (IN) | payer BC ==
[~2024-03-25] VITALS: Wt 84.1 kg
[~2024-03-25 09:51] MED LIST changes: +Thiamine 100 MG TAB PO SCH
[2024-03-25] MEDS ORDERED: LORazepam 2 MG/ML 1 ML VIAL IV ONE (10:20)
[2024-03-25] MEDS ORDERED: Ondansetron 4 MG/2 ML VIAL IV ONE (10:20)
[2024-03-25] MEDS ORDERED: Morphine 4 MG/ML VIAL IV ONE ×2 (10:20→13:00)
[2024-03-25] MEDS ORDERED: NS 100 ML IV SCH (11:40)
[2024-03-25] MEDS ORDERED: Iohexol 300 - 100 ML VIAL IV ONE (11:40)
--- NOTE | 2024-03-25 16:50 | NUR ---
pt admitted to room from ED. pt a&ox4 and independent in the room. vss. dr colorado in room w patient. INT to left ac. pt requesting some water to drink. med rec complete. no needs at this time.
[2024-03-25 16:56] VITALS: BP 133/90; PULSE 90
[2024-03-25 17:00] VITALS: BP_SYST 133
[2024-03-25] MEDS ORDERED: Pantoprazole 40 MG in NS 10 ML IV SCH (17:35)
[2024-03-25] MEDS ORDERED: Ondansetron 4 MG/2 ML VIAL IV PRN (17:45)
[2024-03-25] MEDS ORDERED: oxyCODONE 5 MG TAB PO PRN (17:45)
[2024-03-25] MEDS ORDERED: Mag/Al Hydrox/Simeth Susp 30 ML CUP PO PRN (17:45)
[2024-03-25] MEDS ORDERED: diazePAM 10 MG TAB PO SCH (17:45)
[2024-03-25] MEDS ORDERED: Albuterol/Ipratropium 3 MG-0.5 MG/3 ML Neb Soln IH PRN (17:45)
[2024-03-25] MEDS ORDERED: LORazepam 2 MG/ML 1 ML VIAL IV PRN (17:45)
[2024-03-25] MEDS ORDERED: Morphine 4 MG/ML VIAL IV PRN (17:45)
[2024-03-25 18:41] VITALS: BP 153/102; PULSE 81; TEMP 97.4
[2024-03-25] MEDS ORDERED: Formoterol 20 MCG,Budesonide 0.5 MG IH SCH (19:00)
[2024-03-25] MEDS ORDERED: Folic Acid 1 MG,Thiamine 200 MG in NS 1,000 ML IV ONE (19:00)
--- NOTE | 2024-03-25 19:45 | NUR ---
MOVED PT TO ROOM 329 FOR DIFFERENT BED. IVF BANANA BAG CONNECTED AND INFUSING TO LT AC WITHOUT PROBLEM. IS ON CIWA PROTOCOL, NO OBVIOUS S/S OF WITHDRAWAL AT THIS TIME.
[2024-03-25 20:00] VITALS: BP 152/92; PULSE 71; TEMP 98.4
[2024-03-25] MEDS ORDERED: NS 1,000 ML IV SCH (21:00)
[2024-03-25 22:00] VITALS: BP 157/91; PULSE 63; TEMP 98.2
--- NOTE | 2024-03-25 22:38 | NUR ---
PT ONLY SCORING 2 AT THIS TIME ON CIWA PROTOCOL. REPORTS EPIGASTRIC PAIN, MEDICATED WITH OXYCODONE 5MG PO AND MORPHINE 2MG IVP AND DOSE OF MAALOX.
[2024-03-25 23:56] VITALS: BP 159/88; PULSE 71; TEMP 98.1
[2024-03-26] VITALS (9 sets, daily range): BP systolic 147–160; BP diastolic 88–103; PULSE 56–75; TEMP 97.5–98.3
[2024-03-26] LABS: BASO # 0.1 K/mm3 (0.0-0.2); BASO % 1.1 % (0.0-2.0); EOS % 0.2 % (0.0-4.0); GRAN # 3.8 K/mm3 (1.4-6.5); GRAN % 58.6 % (42.2-75.2); HEMATOCRIT 45.8 % (42.0-52.0); HEMOGLOBIN 16.7 g/dl (13.5-18.0); LYMPH # 1.8 K/mm3 (1.2-3.4); LYMPH % 27.7 % (20.0-51.0); MEAN CELL VOLUME 85 fl (80.0-100.0); MEAN CORPUSCULAR HEMOGLOBIN 31 pg (27-31); MEAN CORPUSCULAR HGB CONC 37 g/dl (33.0-37.0); MEAN PLATELET VOLUME 9.9 fl (7.4-10.4); MONO # 0.8 K/mm3 (0.1-0.6); MONO % 12.2 % (1.7-9.3); PLATELET COUNT 353 K/mm3 (130-400); REDCELL DISTRIBUTION WIDTH-CV 12.8 % (11.5-14.5)
[2024-03-26 01:23] LABS: ALBUMIN 4.3 g/dL (3.5-5.0); BILIRUBIN,TOTAL 4.9 mg/dL (0.2-1.2); CREATININE, serum 1.06 mg/dL (0.72-1.25); POTASSIUM 3.6 mEq/L (3.5-4.5); TOTAL PROTEIN 7.5 g/dl (6.2-8.1)
[2024-03-26 01:33] LABS: MAGNESIUM 1.9 mg/dL (1.6-2.6)
--- NOTE | 2024-03-26 02:00 | NUR ---
MEDICATED WITH SCHEDULED VALIUM 10MG PO NOW. STILL SCORING LOW ON CIWA SCALE.
--- NOTE | 2024-03-26 06:00 | NUR ---
PT HAS RESTED WELL THIS SHIFT. HOPING TO GO HOME TODAY. REMAINS ON CLEAR LIQUIDS.
[2024-03-26] MEDS ORDERED: Multivitamin TAB PO SCH (08:00)
[2024-03-26] MEDS ORDERED: Folic Acid 1 MG TAB PO SCH (09:00)
--- NOTE | 2024-03-26 09:50 | NUR ---
pt ambulating in the halls. pt denies pain and is wanting to go home. bp elevated, Dr phillip notified to resume blood pressure medication. pt on CIWA protocol and not scoring. fluids infusing into left ac. denies needs at this time. call light in reach.
[2024-03-26] MEDS ORDERED: amLODIPine 5 MG TAB PO SCH (10:15)
--- NOTE | 2024-03-26 11:40 | NUR ---
drop board worker met with patient to discuss discharge planning. Patient is from [place] and lives alone. PCP is Dr. Abrams, pharmacy is [facility]. No issues affording medications. Insurance is [employer]. Points of contact is [facility] (sister) [phone] or [facility] [phone]. No DPOA-HC and not interested in completing one. DME is a nebulizer. Patient reports to be independent with ADLS and is able to transport himself to and from appointments. Patient would like to return home at time of discharge. Discharge plan: Home
--- NOTE | 2024-03-26 14:50 | NUR ---
INT discontinued. discharge instrucstions given to pt, all questions answered. escorted patient out for discharge.
== END 2024-03-26 14:45 | disposition home or self-care (01) | DRG 897 ==
LOC: COL.ER 09:51 → SURG 14:59
PROVIDERS: ADMIT Internal Medicine
DX: F10.139 Alcohol abuse with withdrawal, unspecified (principal); J45.909 Unspecified asthma, uncomplicated; F17.210 Nicotine dependence, cigarettes, uncomplicated; K29.20 Alcoholic gastritis without bleeding; K21.9 Gastro-esophageal reflux disease without esophagitis; G47.00 Insomnia, unspecified; H00.016 Hordeolum externum left eye, unspecified eyelid; Y90.6 Blood alcohol level of 120-199 mg/100 ml; I10 Essential (primary) hypertension; E86.0 Dehydration; Z91.010 Allergy to peanuts; Z88.2 Allergy status to sulfonamides; Z91.018 Allergy to other foods
CPT/HCPCS: C9113; J2060; J2270; J2405; J3411; J7030; Q9967

== ENCOUNTER 2024-03-27 04:22 | Emergency (ER) | payer BC ==
[~2024-03-27] VITALS: Ht 182.9 cm; Wt 86.4 kg
[~2024-03-27 04:22] MED LIST changes: -Thiamine 100 MG TAB PO SCH
[2024-03-27 04:23] VITALS: TEMP 97
[2024-03-27] MEDS ORDERED: NS 1,000 ML IV ONE (04:45)
[2024-03-27] MEDS ORDERED: Pantoprazole 40 MG in NS 10 ML IV ONE (04:45)
[2024-03-27 04:55] LABS: BASO # 0.1 K/mm3 (0.0-0.2); BASO % 1.8 % (0.0-2.0); EOS # 0.2 K/mm3 (0.0-0.7); EOS % 6.5 % (0.0-4.0); GRAN # 1.5 K/mm3 (1.4-6.5); GRAN % 45.1 % (42.2-75.2); HEMATOCRIT 38.9 % (42.0-52.0); LYMPH # 1.2 K/mm3 (1.2-3.4); LYMPH % 34.3 % (20.0-51.0); MEAN CELL VOLUME 87 fl (80.0-100.0); MEAN CORPUSCULAR HGB CONC 35 g/dl (33.0-37.0); MONO # 0.4 K/mm3 (0.1-0.6); MONO % 12.3 % (1.7-9.3); RED BLOOD COUNT 4.46 M/mm3 (4.20-5.60); REDCELL DISTRIBUTION WIDTH-CV 12.6 % (11.5-14.5)
[2024-03-27 04:59] LABS: HEMOGLOBIN 13.6 g/dl (13.5-18.0); MEAN CORPUSCULAR HEMOGLOBIN 30 pg (27-31)
[2024-03-27 05:00] LABS: PLATELET COUNT 214 K/mm3 (130-400)
[2024-03-27 05:18] LABS: ALBUMIN 3.4 g/dL (3.5-5.0); BILIRUBIN,TOTAL 2.2 mg/dL (0.2-1.2); C-REACTIVE PROTEIN 0.12 mg/dL (0.00-0.50); CALCIUM 8.9 mg/dL (8.4-10.2); CREATININE, serum 0.83 mg/dL (0.72-1.25); POTASSIUM 3.1 mEq/L (3.5-4.5); TOTAL PROTEIN 6.2 g/dl (6.2-8.1)
[2024-03-27 06:05] VITALS: BP 141/95; PULSE 85
== END 2024-03-27 06:05 | disposition home or self-care (01) ==
LOC: COL.ER 04:22
PROVIDERS: Emergency Medicine
DX: F10.129 Alcohol abuse with intoxication, unspecified (principal); K29.70 Gastritis, unspecified, without bleeding; R74.01 Elevation of levels of liver transaminase levels; F17.210 Nicotine dependence, cigarettes, uncomplicated; Y90.6 Blood alcohol level of 120-199 mg/100 ml
CPT/HCPCS: C9113; J7030

== ENCOUNTER 2024-03-27 11:27 | Emergency (ER) | payer BC ==
[~2024-03-27] VITALS: Ht 177.8 cm; Wt 81.8 kg
[2024-03-27 11:30] VITALS: TEMP 97.9
[2024-03-27] MEDS ORDERED: Ondansetron 4 MG/2 ML VIAL IV ONE (11:45)
[2024-03-27] MEDS ORDERED: NS 1,000 ML IV ONE (11:45)
[2024-03-27 12:04] LABS: BASO # 0.1 K/mm3 (0.0-0.2); BASO % 2.1 % (0.0-2.0); EOS # 0.2 K/mm3 (0.0-0.7); GRAN # 2.1 K/mm3 (1.4-6.5); GRAN % 49.9 % (42.2-75.2); HEMATOCRIT 40.3 % (42.0-52.0); HEMOGLOBIN 13.8 g/dl (13.5-18.0); LYMPH # 1.4 K/mm3 (1.2-3.4); MEAN CELL VOLUME 87 fl (80.0-100.0); MEAN CORPUSCULAR HEMOGLOBIN 30 pg (27-31); MEAN CORPUSCULAR HGB CONC 34 g/dl (33.0-37.0); MEAN PLATELET VOLUME 9.9 fl (7.4-10.4); MONO # 0.4 K/mm3 (0.1-0.6); MONO % 8.8 % (1.7-9.3); PLATELET COUNT 211 K/mm3 (130-400); RED BLOOD COUNT 4.61 M/mm3 (4.20-5.60); REDCELL DISTRIBUTION WIDTH-CV 12.5 % (11.5-14.5)
[2024-03-27 12:16] LABS: ALBUMIN 3.5 g/dL (3.5-5.0); BILIRUBIN,TOTAL 2.2 mg/dL (0.2-1.2); CALCIUM 8.7 mg/dL (8.4-10.2); CREATININE, serum 0.85 mg/dL (0.72-1.25); POTASSIUM 3.3 mEq/L (3.5-4.5); TOTAL PROTEIN 6.3 g/dl (6.2-8.1)
--- NOTE | 2024-03-27 15:14 | NUR ---
Licensed Practical Nurse contacted by ER nurse stating that patient presented to the ER intoxicated after being discharged for same presentation early this morning. Chart reviewed, patient recently discharged from hospital, as well as being seen by Socail Services at a recent ER admission. Patient was provided with resources for alcohol abuse and treatment. No other needs identified at this time.
[2024-03-27 15:24] VITALS: BP 137/93; PULSE 79
== END 2024-03-27 15:24 | disposition home or self-care (01) ==
LOC: COL.ER 11:27
PROVIDERS: Nurse Practitioner
DX: F10.129 Alcohol abuse with intoxication, unspecified (principal); Y90.7 Blood alcohol level of 200-239 mg/100 ml
CPT/HCPCS: J2405; J7030

== ENCOUNTER 2024-03-30 07:45 | Emergency (ER) | payer BC ==
[~2024-03-30] VITALS: Ht 177.8 cm; Wt 86.4 kg
[2024-03-30 07:46] VITALS: BP 137/103; PULSE 93; TEMP 98.3
[2024-03-30] MEDS ORDERED: NS 1,000 ML IV ONE (08:00)
[2024-03-30] MEDS ORDERED: Morphine 4 MG/ML VIAL IV ONE ×2 (08:00→10:15)
[2024-03-30] MEDS ORDERED: Ondansetron 4 MG/2 ML VIAL IV ONE (08:00)
[2024-03-30] MEDS ORDERED: Pantoprazole 40 MG in NS 10 ML IV ONE (08:15)
[2024-03-30 08:25] LABS: BASO # 0.1 K/mm3 (0.0-0.2); EOS # 0.3 K/mm3 (0.0-0.7); EOS % 3.8 % (0.0-4.0); GRAN # 4.7 K/mm3 (1.4-6.5); GRAN % 61.7 % (42.2-75.2); HEMATOCRIT 46.5 % (42.0-52.0); LYMPH # 1.9 K/mm3 (1.2-3.4); LYMPH % 25.1 % (20.0-51.0); MEAN CELL VOLUME 83 fl (80.0-100.0); MEAN CORPUSCULAR HEMOGLOBIN 30 pg (27-31); MEAN CORPUSCULAR HGB CONC 36 g/dl (33.0-37.0); MEAN PLATELET VOLUME 10.1 fl (7.4-10.4); MONO # 0.6 K/mm3 (0.1-0.6); MONO % 8.3 % (1.7-9.3); PLATELET COUNT 256 K/mm3 (130-400); RED BLOOD COUNT 5.61 M/mm3 (4.20-5.60); REDCELL DISTRIBUTION WIDTH-CV 12.4 % (11.5-14.5)
[2024-03-30 08:27] LABS: HEMOGLOBIN 16.8 g/dl (13.5-18.0)
[2024-03-30 08:45] LABS: ALBUMIN 3.9 g/dL (3.5-5.0); BILIRUBIN,TOTAL 3.7 mg/dL (0.2-1.2); CALCIUM 9.4 mg/dL (8.4-10.2); CREATININE, serum 0.9 mg/dL (0.72-1.25); POTASSIUM 3.6 mEq/L (3.5-4.5)
--- NOTE | 2024-03-30 11:44 | NUR ---
grain ii farmworker was informed pt needs alcohol use resources. SW provided inpatient and outpatient list of options to pt. SW mentioned [facility] for an assessment and determination of services. Pt voiced no other needs.
== END 2024-03-30 12:10 | disposition home or self-care (01) ==
LOC: COL.ER 07:45
PROVIDERS: Emergency Medicine
DX: K29.20 Alcoholic gastritis without bleeding (principal); F10.129 Alcohol abuse with intoxication, unspecified; Y90.6 Blood alcohol level of 120-199 mg/100 ml
CPT/HCPCS: C9113; J0780; J2270; J2405; J7030

== ENCOUNTER 2024-04-01 05:16 | Observation (INO) | payer BC | END 2024-04-03 13:15 | disposition home or self-care (01) | LOC: COL.ER 05:16 → MEDICAL 10:50 | PROVIDERS: ADMIT Internal Medicine | DX: K29.70 Gastritis, unspecified, without bleeding (principal); E87.6 Hypokalemia | CPT/HCPCS: G0378 ==

== ENCOUNTER 2024-05-22 08:21 | Emergency (ER) | payer BC ==
[~2024-05-22] VITALS: Ht 182.9 cm; Wt 86.4 kg
[2024-05-22 08:22] VITALS: TEMP 97.8
[2024-05-22 08:39] LABS: BASO # 0.1 K/mm3 (0.0-0.2); BASO % 1.2 % (0.0-2.0); EOS # 0.1 K/mm3 (0.0-0.7); GRAN # 4.7 K/mm3 (1.4-6.5); GRAN % 56.8 % (42.2-75.2); HEMATOCRIT 47.7 % (42.0-52.0); HEMOGLOBIN 16.8 g/dl (13.5-18.0); LYMPH # 2.8 K/mm3 (1.2-3.4); LYMPH % 33.1 % (20.0-51.0); MEAN CELL VOLUME 84 fl (80.0-100.0); MEAN CORPUSCULAR HEMOGLOBIN 30 pg (27-31); MEAN CORPUSCULAR HGB CONC 35 g/dl (33.0-37.0); MEAN PLATELET VOLUME 9.4 fl (7.4-10.4); MONO # 0.6 K/mm3 (0.1-0.6); MONO % 7.7 % (1.7-9.3); PLATELET COUNT 270 K/mm3 (130-400); RED BLOOD COUNT 5.65 M/mm3 (4.20-5.60); REDCELL DISTRIBUTION WIDTH-CV 14.7 % (11.5-14.5)
[2024-05-22] MEDS ORDERED: Ondansetron 4 MG/2 ML VIAL IV ONE (08:45)
[2024-05-22] MEDS ORDERED: NS 1,000 ML IV ONE ×2 (08:45)
[2024-05-22] MEDS ORDERED: Morphine 4 MG/ML VIAL IV ONE (08:45)
[2024-05-22] MEDS ORDERED: Pantoprazole 40 MG in NS 10 ML IV ONE (08:45)
[2024-05-22 09:03] LABS: ALBUMIN 4.5 g/dL (3.5-5.0); BILIRUBIN,TOTAL 3.1 mg/dL (0.2-1.2); CALCIUM 9.4 mg/dL (8.4-10.2); POTASSIUM 3.9 mEq/L (3.5-4.5)
[2024-05-22] MEDS ORDERED: LORazepam 2 MG/ML 1 ML VIAL IV ONE (10:30)
[2024-05-22 12:11] VITALS: BP 146/91; PULSE 84
== END 2024-05-22 12:11 | disposition home or self-care (01) ==
LOC: COL.ER 08:21
PROVIDERS: Personal Emergency Response Attendant
DX: F10.20 Alcohol dependence, uncomplicated (principal); Y90.8 Blood alcohol level of 240 mg/100 ml or more
CPT/HCPCS: J2060; J2270; J2405; J2470; J7030

== ENCOUNTER 2024-07-07 21:32 | Emergency (ER) | payer BC ==
[~2024-07-07] VITALS: Ht 182.9 cm; Wt 100.0 kg
[2024-07-07 21:33] VITALS: TEMP 97.8
[2024-07-07] MEDS ORDERED: LR 1,000 ML IV ONE ×3 (21:45→23:45)
[2024-07-07] MEDS ORDERED: Ondansetron 4 MG/2 ML VIAL IV ONE (21:45)
[2024-07-07 22:10] LABS: BASO # 0.1 K/mm3 (0.0-0.2); BASO % 1.1 % (0.0-2.0); EOS # 0.1 K/mm3 (0.0-0.7); EOS % 1.1 % (0.0-4.0); GRAN # 3.8 K/mm3 (1.4-6.5); GRAN % 57.7 % (42.2-75.2); HEMATOCRIT 47.6 % (42.0-52.0); HEMOGLOBIN 16.8 g/dl (13.5-18.0); LYMPH # 2.1 K/mm3 (1.2-3.4); LYMPH % 32.1 % (20.0-51.0); MEAN CELL VOLUME 86 fl (80.0-100.0); MEAN CORPUSCULAR HEMOGLOBIN 30 pg (27-31); MEAN CORPUSCULAR HGB CONC 35 g/dl (33.0-37.0); MEAN PLATELET VOLUME 9.7 fl (7.4-10.4); MONO # 0.5 K/mm3 (0.1-0.6); MONO % 7.8 % (1.7-9.3); PLATELET COUNT 312 K/mm3 (130-400); RED BLOOD COUNT 5.52 M/mm3 (4.20-5.60); REDCELL DISTRIBUTION WIDTH-CV 13.7 % (11.5-14.5)
[2024-07-07 22:24] LABS: ALBUMIN 4.5 g/dL (3.5-5.0); BILIRUBIN,TOTAL 2.3 mg/dL (0.2-1.2); CALCIUM 9.8 mg/dL (8.4-10.2); POTASSIUM 3.8 mEq/L (3.5-4.5); TOTAL PROTEIN 7.4 g/dl (6.2-8.1)
[2024-07-07 22:43] LABS: TRICYCLIC ANTIDEPRESS URINE NEGATIVE (NEGATIVE)
[2024-07-07] MEDS ORDERED: Iohexol 300 - 100 ML VIAL IV ONE (23:01)
[2024-07-07] MEDS ORDERED: NS 100 ML IV ONE (23:02)
[2024-07-07 23:11] LABS: COLLECTION METHOD CLEAN CATCH
[2024-07-07 23:19] LABS: PH 5.5 (5.0-8.5); URINE APPEARANCE CLEAR (CLEAR/HAZY); URINE BLOOD NEGATIVE (NEGATIVE); URINE COLOR YELLOW (YELLOW); URINE GLUCOSE NEGATIVE (NEGATIVE); URINE KETONE TRACE (NEGATIVE); URINE NITRATE NEGATIVE (NEGATIVE); URINE PROTEIN(semi-quant) 1+ (NEGATIVE)
[2024-07-07 23:36] LABS: SQUAMOUS EPITHELIAL NONE SEEN /hpf (0-10); URINE BACTERIA RARE /hpf (NONE SEEN); URINE RBC NONE SEEN /hpf (0-2); URINE WBC None Seen /hpf (0-2)
[2024-07-08 00:23] LABS: ANION GAP 21 mmol/L (7-16); BLOOD UREA NITROGEN 14 mg/dL (9-21); CALCIUM 9.4 mg/dL (8.4-10.2); CHLORIDE 99 mEq/L (98-107); CREATININE, serum 0.95 mg/dL (0.72-1.25); GLUCOSE 96 mg/dL (70-99); POTASSIUM 3.8 mEq/L (3.5-4.5); SODIUM 137 mEq/L (136-145)
[2024-07-08 00:24] LABS: SALICYLATE < 5.0 mg/dL (15.0-30.0)
[2024-07-08 01:35] VITALS: BP 149/109; PULSE 80
== END 2024-07-08 01:35 | disposition home or self-care (01) ==
LOC: COL.ER 21:32
PROVIDERS: Emergency Medicine
DX: E86.0 Dehydration (principal); F10.129 Alcohol abuse with intoxication, unspecified
CPT/HCPCS: J2405; J7120; Q9967

== ENCOUNTER 2024-07-23 07:32 | Emergency (ER) | payer BC ==
[~2024-07-23] VITALS: Ht 182.9 cm; Wt 79.5 kg
[2024-07-23 07:34] VITALS: TEMP 98.7
[2024-07-23] MEDS ORDERED: LR 1,000 ML IV ONE (07:45)
[2024-07-23 09:00] VITALS: BP 151/44; PULSE 98
== END 2024-07-23 09:09 | disposition home or self-care (01) ==
LOC: COL.ER 07:32
DX: F10.10 Alcohol abuse, uncomplicated (principal); E86.0 Dehydration
CPT/HCPCS: J7120

== ENCOUNTER 2024-07-24 08:01 | Emergency (ER) | payer BC ==
[~2024-07-24] VITALS: Ht 182.9 cm; Wt 84.1 kg
[2024-07-24 08:02] VITALS: TEMP 97.9
[2024-07-24] MEDS ORDERED: droPERidol 2.5 MG/ML 2 ML VIAL IV ONE (08:15)
[2024-07-24] MEDS ORDERED: NS 1,000 ML IV ONE ×2 (08:15)
[2024-07-24 08:30] LABS: BASO # 0.1 K/mm3 (0.0-0.2); BASO % 2.1 % (0.0-2.0); EOS # 0.1 K/mm3 (0.0-0.7); EOS % 1.3 % (0.0-4.0); GRAN # 2.6 K/mm3 (1.4-6.5); GRAN % 48.9 % (42.2-75.2); HEMATOCRIT 45.2 % (42.0-52.0); HEMOGLOBIN 16.2 g/dl (13.5-18.0); LYMPH # 2.1 K/mm3 (1.2-3.4); LYMPH % 38.9 % (20.0-51.0); MEAN CELL VOLUME 87 fl (80.0-100.0); MEAN CORPUSCULAR HEMOGLOBIN 31 pg (27-31); MEAN CORPUSCULAR HGB CONC 36 g/dl (33.0-37.0); MEAN PLATELET VOLUME 9.4 fl (7.4-10.4); MONO # 0.5 K/mm3 (0.1-0.6); MONO % 8.6 % (1.7-9.3); PLATELET COUNT 351 K/mm3 (130-400); RED BLOOD COUNT 5.21 M/mm3 (4.20-5.60); REDCELL DISTRIBUTION WIDTH-CV 13.3 % (11.5-14.5)
[2024-07-24 08:46] LABS: ALBUMIN 4.3 g/dL (3.5-5.0); BILIRUBIN,TOTAL 4.1 mg/dL (0.2-1.2); CALCIUM 9.1 mg/dL (8.4-10.2); CREATININE, serum 0.81 mg/dL (0.72-1.25); POTASSIUM 3.8 mEq/L (3.5-4.5); TOTAL PROTEIN 6.9 g/dl (6.2-8.1)
[2024-07-24 10:26] VITALS: BP 150/104
[2024-07-24 11:04] VITALS: PULSE 110
== END 2024-07-24 11:06 | disposition home or self-care (01) ==
LOC: COL.ER 08:01
PROVIDERS: Personal Emergency Response Attendant
DX: F10.129 Alcohol abuse with intoxication, unspecified (principal); Y90.8 Blood alcohol level of 240 mg/100 ml or more
CPT/HCPCS: J1790; J7030

== ENCOUNTER 2024-07-28 03:27 | Emergency (ER) | payer BC ==
[~2024-07-28] VITALS: Ht 180.3 cm; Wt 81.8 kg
[2024-07-28 03:28] VITALS: TEMP 98.2
[2024-07-28 04:11] LABS: COLLECTION METHOD CLEAN CATCH
[2024-07-28] MEDS ORDERED: NS 1,000 ML IV ONE (04:15)
[2024-07-28 04:17] LABS: PH 6.5 (5.0-8.5); URINE APPEARANCE CLEAR (CLEAR/HAZY); URINE BLOOD 3+ (NEGATIVE); URINE COLOR Dark Yellow (YELLOW); URINE GLUCOSE NEGATIVE (NEGATIVE); URINE KETONE TRACE (NEGATIVE); URINE NITRATE POSITIVE (NEGATIVE); URINE PROTEIN(semi-quant) 3+ (NEGATIVE)
[2024-07-28 04:21] LABS: BASO # 0.1 K/mm3 (0.0-0.2); BASO % 2.1 % (0.0-2.0); EOS % 0.2 % (0.0-4.0); GRAN # 3.5 K/mm3 (1.4-6.5); GRAN % 60.8 % (42.2-75.2); HEMATOCRIT 41.8 % (42.0-52.0); HEMOGLOBIN 14.8 g/dl (13.5-18.0); LYMPH # 1.4 K/mm3 (1.2-3.4); LYMPH % 24.2 % (20.0-51.0); MEAN CELL VOLUME 87 fl (80.0-100.0); MEAN CORPUSCULAR HEMOGLOBIN 31 pg (27-31); MEAN CORPUSCULAR HGB CONC 35 g/dl (33.0-37.0); MEAN PLATELET VOLUME 9.7 fl (7.4-10.4); MONO # 0.7 K/mm3 (0.1-0.6); MONO % 12.4 % (1.7-9.3); PLATELET COUNT 210 K/mm3 (130-400); RED BLOOD COUNT 4.82 M/mm3 (4.20-5.60); REDCELL DISTRIBUTION WIDTH-CV 13.2 % (11.5-14.5)
[2024-07-28 04:37] LABS: TRICYCLIC ANTIDEPRESS URINE NEGATIVE (NEGATIVE)
[2024-07-28 04:39] LABS: ALANINE AMINOTRANSFERASE 132 U/L (0-55); ALBUMIN 4.4 g/dL (3.5-5.0); ALCOHOL(ethanol),MEDICAL 261 mg/dL (0-10); ALKALINE PHOSPHATASE 66 U/L (40-150); ANION GAP 21 mmol/L (7-16); AST,SGOT 315 U/L (5-34); BILIRUBIN,TOTAL 4.6 mg/dL (0.2-1.2); BLOOD UREA NITROGEN 16 mg/dL (9-21); CALCIUM 9.5 mg/dL (8.4-10.2); CHLORIDE 95 mEq/L (98-107); CREATININE, serum 0.98 mg/dL (0.72-1.25); GLUCOSE 100 mg/dL (70-99); POTASSIUM 3.8 mEq/L (3.5-4.5); SODIUM 140 mEq/L (136-145); TOTAL PROTEIN 7.2 g/dl (6.2-8.1)
[2024-07-28 05:10] LABS: SALICYLATE < 5.0 mg/dL (15.0-30.0)
[2024-07-28 06:36] LABS: TSH w REFLEX 0.897 uIU/mL (0.350-4.940)
[2024-07-28 07:40] VITALS: BP 150/99; PULSE 104
== END 2024-07-28 07:45 | disposition home or self-care (01) ==
LOC: COL.ER 03:27
PROVIDERS: Emergency Medicine
DX: F10.129 Alcohol abuse with intoxication, unspecified (principal); Y90.8 Blood alcohol level of 240 mg/100 ml or more
CPT/HCPCS: J7030

== ENCOUNTER 2024-09-04 04:34 | Emergency (ER) | payer BC ==
[~2024-09-04] VITALS: Ht 182.9 cm; Wt 86.4 kg
[2024-09-04 04:36] VITALS: TEMP 97.9
[2024-09-04 04:53] LABS: BASO # 0.1 K/mm3 (0.0-0.2); BASO % 1.7 % (0.0-2.0); EOS # 0.1 K/mm3 (0.0-0.7); EOS % 0.6 % (0.0-4.0); GRAN # 4.9 K/mm3 (1.4-6.5); GRAN % 59.8 % (42.2-75.2); HEMATOCRIT 49.9 % (42.0-52.0); HEMOGLOBIN 17.8 g/dl (13.5-18.0); LYMPH # 2.3 K/mm3 (1.2-3.4); LYMPH % 28.1 % (20.0-51.0); MEAN CELL VOLUME 86 fl (80.0-100.0); MEAN CORPUSCULAR HEMOGLOBIN 31 pg (27-31); MEAN CORPUSCULAR HGB CONC 36 g/dl (33.0-37.0); MEAN PLATELET VOLUME 9.5 fl (7.4-10.4); MONO # 0.8 K/mm3 (0.1-0.6); MONO % 9.6 % (1.7-9.3); PLATELET COUNT 329 K/mm3 (130-400); RED BLOOD COUNT 5.81 M/mm3 (4.20-5.60); REDCELL DISTRIBUTION WIDTH-CV 13.4 % (11.5-14.5)
[2024-09-04] MEDS ORDERED: Folic Acid 1 MG,Thiamine 200 MG in NS 1,000 ML IV ONE (05:00)
[2024-09-04] MEDS ORDERED: LORazepam 2 MG/ML 1 ML VIAL IV ONE (05:00)
[2024-09-04 05:12] LABS: ALBUMIN 4.8 g/dL (3.5-5.0); BILIRUBIN,TOTAL 3.7 mg/dL (0.2-1.2); CALCIUM 10.3 mg/dL (8.4-10.2); CREATININE, serum 1.13 mg/dL (0.72-1.25); TOTAL PROTEIN 7.8 g/dl (6.2-8.1)
[2024-09-04] MEDS ORDERED: Mag/Al Hydrox/Simeth Susp 30 ML CUP PO ONE (06:15)
[2024-09-04] MEDS ORDERED: Ketorolac 15 MG/ML VIAL IV ONE (06:15)
[2024-09-04] MEDS ORDERED: LIBRIUM 25M25 MG/CAP PO (06:15)
[2024-09-04] MEDS ORDERED: fentaNYL 50 MCG/ML 2 ML VIAL IV ONE (07:30)
[2024-09-04 09:14] VITALS: BP 149/96; PULSE 103
[2024-09-04] MEDS ORDERED: Home Ondansetron ODT 4 MG #2 ODT/PACK PO ONE (09:30)
== END 2024-09-04 09:29 | disposition home or self-care (01) ==
LOC: COL.ER 04:34
PROVIDERS: Emergency Medicine
DX: K29.20 Alcoholic gastritis without bleeding (principal); F17.200 Nicotine dependence, unspecified, uncomplicated
CPT/HCPCS: J1885; J2060; J3010; J3411; J7030